=== PATIENT | female | born 1970 | race Caucasian/White ===

== ENCOUNTER 2016-11-29 03:25 | Emergency (ER) | payer OTHER ==
[~2016-11-29] VITALS: Ht 170.2 cm; Wt 125.5 kg
[~2016-11-29 03:25] MED LIST: ALDACTONE25 MG PO; BACTRIM,SEPT1 TABLET PO; BENICAR40 MG PO; BYDUREON2 MG SC; CRESTOR10 MG PO; CRESTOR40 MG PO; CYCLOBENZAPRINE10 M1 G-TUBE; FEMCON; GLUCOPHAGE500 M1 PO; LEVEMIR FL100 UNITS/ SC; LOVAZA1 GM PO; METFORMIN HCL500 M1 PO; MULTIVITAMIN1 EAC2 PO; NAPROSYN500 MG PO; NASONEX; SPIRONOLACTONE50 MG PO; SYMBICORT60 INHALA1 IH; TRILIPIX135 MG PO; ULORIC40 MG PO; ULTRAM50 MG PO; VICTOZA0.6 MG/0.1 SC; VOLTAREN75 MG PO; VYTORIN 10-401 EACH PO; VYTORIN 10/41 TABLET PO; ZEOSA CHEWABLE1 EACH PO; [UNRECOGNIZED DRUG - OTHER] PO
[2016-11-29] MEDS ORDERED: NAPROSYN500 MG PO (04:58)
[2016-11-29 05:10] VITALS: BP 123/87
== END 2016-11-29 05:11 | disposition home or self-care (01) ==
LOC: EME 03:25 → EXP 03:25
DX: M72.2 Plantar fascial fibromatosis (principal); Z88.8 Allergy status to other drugs, medicaments and biological substances; Z88.6 Allergy status to analgesic agent; Z88.5 Allergy status to narcotic agent; Z88.0 Allergy status to penicillin; Z88.1 Allergy status to other antibiotic agents
CPT/HCPCS: 73630; 99281; 99283

== ENCOUNTER 2017-04-08 14:36 | Emergency (ER) | payer OTHER ==
[~2017-04-08] VITALS: Ht 170.2 cm; Wt 123.0 kg
[2017-04-08 15:35] LABS: HEMATOCRIT 39.4 % (36.0-46.0); MCH 28.6 PG (29.0-34.0); MCHC 32.5 G/DL (30.0-36.0); MCV 87.9 FL (83-99); MEAN PLAT.VOLUME 9.3 uM^3 (9.5-12.4); PLATELET COUNT 276 K/uL (156-360); RBC DIS.WIDTH-CV 12.6 % (11.8-14.6); RED BLOOD COUNT 4.48 M/uL (3.80-5.20); WHITE BLOOD COUNT 8.1 K/uL (4.1-10.2)
[2017-04-08 15:48] LABS: CHLORIDE 106 mEq/L (99-109); POTASSIUM 4.5 mEq/L (3.7-5.4); SODIUM 135 mEq/L (136-147)
[2017-04-08 15:49] LABS: D-DIMER ELISA 1.71 mg/L FEU (< 0.57); GLUCOSE 213 mg/dL (70-99)
[2017-04-08 15:51] LABS: ANION GAP 12 MEQ/L (2-14)
[2017-04-08 15:53] LABS: GFR ESTIMATE (CALCULATED) > 59 mL/min/
[2017-04-08 15:54] LABS: UREA NITROGEN (BUN) 14 mg/dL (9-23)
[2017-04-08 15:57] LABS: TROP-I INTERPRETATION NEGATIVE; TROPONIN-I < 0.01 ng/mL (0.0-0.30)
[2017-04-08 16:06] LABS: QUANTITATIVE HCG < 4.0 MIU/ML
[2017-04-08 18:45] LABS: TROP-I INTERPRETATION NEGATIVE; TROPONIN-I < 0.01 ng/mL (0.0-0.30)
[2017-04-08 19:53] VITALS: BP 125/81
== END 2017-04-08 19:55 | disposition home or self-care (01) ==
LOC: EME 14:36
PROVIDERS: Emergency Medicine
DX: R06.00 Dyspnea, unspecified (principal); E87.1 Hypo-osmolality and hyponatremia; E83.51 Hypocalcemia; E11.65 Type 2 diabetes mellitus with hyperglycemia; Z79.84 Long term (current) use of oral hypoglycemic drugs; I10 Essential (primary) hypertension
CPT/HCPCS: 71020; 71275; 80048 91; 84484; 84702; 85027; 85379; 93005; 94640; 99281; 99284

== ENCOUNTER → 2017-08-24 | Outpatient (CLI) | payer OTHER | END | disposition home or self-care (01) | LOC: RES 08-19 13:00 | DX: J45.909 Unspecified asthma, uncomplicated (principal) | CPT/HCPCS: 94070 ==